=== PATIENT | male | born 1965 | race Two or more races ===

== ENCOUNTER 2023-06-18 12:09 | Emergency (ER) | payer OTHER ==
[~2023-06-18] VITALS: Ht 167.6 cm; Wt 70.3 kg
[2023-06-18 12:25] VITALS: O2SAT 97
[2023-06-18] MEDS ORDERED: HYDROCODONE/APAP 10-325 MG TABLET ONE (13:40)
[2023-06-18] MEDS: HYDROCODONE/APAP 10-325 MG TABLET PO ONE (13:42)
[2023-06-18] MEDS ORDERED: HYDR-3980 PO (15:03)
== END 2023-06-18 15:30 | disposition home or self-care (01) ==
LOC: ER 12:13
DX: S82.491A Other fracture of shaft of right fibula, initial encounter for closed fracture (principal); Z79.899 Other long term (current) drug therapy; W20.8XXA Other cause of strike by thrown, projected or falling object, initial encounter; Y93.89 Activity, other specified; Y92.89 Other specified places as the place of occurrence of the external cause; Y99.8 Other external cause status
CPT/HCPCS: 73590; A4606; A4663